=== PATIENT | male | born 1955 | race Caucasian/White ===

== ENCOUNTER 2020-10-26 17:44 | Emergency (ER) | payer BC, MEDICARE ==
[~2020-10-26 17:44] MED LIST: Cephalexin 500 MG Cap ONE
--- NOTE | 2020-10-26 19:44 | ER ---
HISTORY OF PRESENT ILLNESS: A 65-year-old male here with complaints of swelling and discomfort starting the inside of his mouth on the floor of his mouth with a swollen gland starting to develop below his right jaw. He states he has had an episode like this before and it was a blocked salivary gland. He was put on antibiotics and it helped. The patient feels this is another episode that is just starting to develop. He is not feeling sick. He denies any injury to this area. OBJECTIVE: GENERAL APPEARANCE: The patient is awake and alert. No obvious distress. VITAL SIGNS: Reviewed as listed. HEENT: Oral exam reveals he does have mild swelling and minimal redness on the right side of the floor of the mouth around one of the salivary gland openings, and he does have submandibular lymphadenopathy that correlates to the same area. There is no active swelling or discoloration noted on the patient's neck area, and pharynx is not inflamed. Tonsils are not enlarged. DIAGNOSIS: Blocked salivary gland, early stage. TREATMENT PLAN: I will put the patient on antibiotics once again. He is advised to use anti-inflammatory medications such as Aleve or ibuprofen. He can use warm packs as needed for comfort, and I advised him to try sucking on a few lemon drops to see if that would help push the stone through. The followup is otherwise p.r.n., and the patient is instructed to increase his liquid intake by a glass or two of water a day. CRS/MODL /[id number]
== END 2020-10-26 18:02 | disposition home or self-care (01) ==
LOC: LB.ED 17:44
DX: K11.8 Other diseases of salivary glands (principal)
CPT/HCPCS: 99283; A9270-GY